=== PATIENT | female | born 1980 | race Caucasian/White ===

== ENCOUNTER 2016-09-20 23:06 | Emergency (ER) | payer MEDICAID ==
[2016-09-20 23:09] VITALS: BMI 37.1
[2016-09-20 23:27] VITALS: TEMP 98.3; O2SAT 100
[2016-09-20] MEDS ORDERED: Iohexol 240 (50 ml) PO ONE (23:43)
[2016-09-20] MEDS ORDERED: Sodium Chloride 0.9% 1,000 ML IV STA (23:43)
--- NOTE | 2016-09-21 00:04 | ED PDOC ---
HPI: Abdomen Time Seen by Provider: 09/20/16 23:24 Chief Complaint (Nursing): Back Pain Chief Complaint (Provider): abdominal pain History Per: Patient History/Exam Limitations: no limitations Onset/Duration Of Symptoms: Days (2) Additional History Per: Patient Additional Complaint(s): 35 y/o female brought in by EMS for eval of abdominal pain x 2 days. Patient states pain started in left lower back, has since spread across whole abdomen. Denies fever, nausea/vomiting, chest pain, shortness of breath, palpitations, changes in bowel movements, dysuria, hematuria, vaginal bleeding/discharge. Against Medical Advice - AMA Patient Left Against Medical Advice: The patient declines admission to the hospital and wishes to leave the Emergency Department. This action is against my medical advice. This decision was made with informed refusal. The patient was told that admission to the hospital is necessary. Explanation of the reasons why were discussed. The risks of leaving were explained to the patient and include, but are not limited to, worsening of known or currently unknown conditions, permanent disability and from undiagnosed or untreated conditions. The patient has the capacity to make this informed decision and understands my explanation of the current medical problem and risks of leaving. The patient voluntarily accepts these risks and signed an AMA form documenting our conversation. The patient was given the opportunity to ask questions and reconsider. The patient was encouraged to return to the Emergency Department at any time for further care. Past Medical History Reviewed: Historical Data, Nursing Documentation, Vital Signs Vital Signs: Last Vital Signs Temp 98.3 F 09/20/16 23:24 Pulse 82 09/21/16 00:08 Resp 16 09/21/16 00:08 BP 153/85 H 09/21/16 00:08 Pulse Ox 100 09/21/16 00:08 - Medical History PMH: No Chronic Diseases - Surgical History Surgical History: - Family History Family History: States: Unknown Family Hx - Home Medications Home Medications: Ambulatory Orders Medication Instructions Recorded Vitamins6 [Prental 1 Plus 1 tab PO ONCE #30 tab 04/09/14 1] - Allergies Allergies/Adverse Reactions: Allergies Allergy/AdvReac Type Severity Reaction Status Date / Time No Known Allergies Allergy Verified 09/20/16 23:23 Review of Systems ROS Statement: Except As Marked, All Systems Reviewed And Found Negative Gastrointestinal: Positive for: Abdominal Pain Musculoskeletal: Positive for: Back Pain Physical Exam - Reviewed Nursing Documentation Reviewed: Yes Vital Signs Reviewed: Yes - Physical Exam Appears: Positive for: Well, Non-toxic, No Acute Distress Head Exam: Positive for: ATRAUMATIC, NORMAL INSPECTION, NORMOCEPHALIC Skin: Positive for: Normal Color Eye Exam: Positive for: Normal appearance ENT: Positive for: Normal ENT Inspection Cardiovascular/Chest: Positive for: Regular Rate, Rhythm Respiratory: Positive for: Normal Breath Sounds Gastrointestinal/Abdominal: Positive for: Bowel Sounds, Soft, Tenderness (ruq, rlq, suprapubic, llq). Negative for: Guarding, Rebound Back: Positive for: Normal Inspection. Negative for: L CVA Tenderness, R CVA Tenderness, Decreased ROM Extremity: Positive for: Normal ROM Neurologic/Psych: Positive for: Alert, Oriented - ECG O2 Sat by Pulse Oximetry: 100 - Progress ED Course And Treament: Patient states she needs to go to work at 12:30 and needs to be done by then; advised patient that is 45 mins from now and testing will not be back by then. Patient advised she will need to sign out against medical advice, and risks of doing so. Patient AAOx3, demonstrates full understanding, states she will come back tomorrow. Disposition - Clinical Impression Clinical Impression: Abdominal pain, Left against medical advice, Back pain - Disposition Disposition Time: 00:06 Condition: FAIR Instructions: Against Medical Advice (ED)
[2016-09-21 00:09] VITALS: BP 153/85; PULSE 82; RESP 16
== END 2016-09-21 00:18 | disposition left against medical advice (07) ==
LOC: H.ER 23:06
DX: R10.9 Unspecified abdominal pain (principal); M54.9 Dorsalgia, unspecified

== ENCOUNTER 2017-10-16 19:17 | Emergency (ER) | payer MEDICAID ==
[2017-10-16 19:18] VITALS: BMI 37.1
[2017-10-16 20:08] VITALS: BP 174/94; PULSE 76; RESP 16; TEMP 98.5; O2SAT 99
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
== END 2017-10-16 20:57 | disposition home or self-care (01) ==
LOC: H.ER 19:17
DX: S16.1XXA Strain of muscle, fascia and tendon at neck level, initial encounter (principal); I10 Essential (primary) hypertension; V43.52XA Car driver injured in collision with other type car in traffic accident, initial encounter